=== PATIENT | male | born 1940 | race Caucasian/White ===

== ENCOUNTER 2017-11-25 18:35 | Emergency (ER) | payer MEDICARE, OTHER ==
--- NOTE | 2017-11-25 19:13 | EDM.PDOC ---
ED HPI GENERAL MEDICAL PROBLEM - General Chief Complaint: General Stated Complaint: Fall on ice; facial injury Time Seen by Provider: 11/25/17 18:36 Source of Information: Reports: Patient, Family, RN, RN Notes Reviewed History Limitations: Reports: No Limitations - History of Present Illness INITIAL COMMENTS - FREE TEXT/NARRATIVE: Patient presents to the ED at [facility] after he sustained a facial injury after slipping on an icy sidewalk. Patient states he slipped and fell, hitting his face on the cement. He denies any LOC. No previous head injury or trauma. Patient denies any neck pain. No back pain. Patient is concerned he may have knocked out a tooth. He complaints of bleeding from the upper lip. Onset: Today Onset Date: 11/25/17 Face Pain Score (Numeric/FACES): 3 - Related Data Allergies Allergy/AdvReac Type Severity Reaction Status Date / Time No Known Allergies Allergy Verified 11/25/17 18:38 Home Meds: Home Meds Acyclovir 400 mg PO BID 11/25/17 [History] Calcium Carbonate/Vitamin D3 [Os-Ariel 500+D] 1 each PO BID 11/25/17 [History] Cetirizine [ZyrTEC] 10 mg PO DAILY 11/25/17 [History] Lenalidomide [Revlimid] 25 mg PO Q48H 11/25/17 [History] Metoprolol Succinate [Toprol XL 50mg] 50 mg PO DAILY 11/25/17 [History] Rivaroxaban [Xarelto] 20 mg PO DAILY 11/25/17 [History] Sennosides/Docusate Sodium [Senna S Tablet] 1 each PO DAILY PRN 11/25/17 [ History] Tamsulosin [Tamsulosin 24 Hr] 0.4 mg PO DAILY 11/25/17 [History] Past Medical History Cardiovascular History: Reports: Hypertension Oncologic (Cancer) History: Reports: Other (See Below) Other Oncologic History: Multiple myeloma Social & Family History - Tobacco Use Smoking Status *Q: Never Smoker ED ROS GENERAL - Review of Systems Review Of Systems: See Below Constitutional: Denies: Fever, Chills HEENT: Reports: Other (right upper lip swelling and abrasion). Denies: Nose Pain, Sinus Problem, Vision Change Respiratory: Denies: Shortness of Breath, Cough Cardiovascular: Denies: Chest Pain, Palpitations Skin: Reports: Wound (abrasion to right upper lip) Neurological: Reports: No Symptoms. Denies: Dizziness, Headache, Numbness, Paresthesia, Tingling ED EXAM, GENERAL - Physical Exam Exam: See Below Exam Limited By: No Limitations General Appearance: Alert, No Apparent Distress Eye Exam: Bilateral Eye: EOMI, Normal Inspection, PERRL Ears: Normal External Exam, Normal Canal, Normal TMs Ear Exam: Bilateral Ear: TM normal Nose: Normal Inspection, No Blood Throat/Mouth: Normal Oropharynx, No Airway Compromise, Other (Abrasion to right upper lip; intact dental fracture to tooth#8; low grade venous ooze on inside of lip, no area that requires closure) Head: Atraumatic, Normocephalic Neck: Supple, Non-Tender, Full Range of Motion Respiratory/Chest: No Respiratory Distress, Lungs Clear, Normal Breath Sounds Cardiovascular: Normal Peripheral Pulses, Regular Rate, Rhythm Neurological: Alert, Oriented Skin Exam: Warm, Dry, Wound/Incision (abrasion to right upper lip) Course - Vital Signs Last Recorded V/S: Last Vital Signs Temp 35.8 C 11/25/17 18:40 Pulse 67 11/25/17 18:40 Resp 16 11/25/17 18:40 BP 149/90 H 11/25/17 18:40 Pulse Ox 95 11/25/17 18:40 - Orders/Labs/Meds Orders: Active Orders 24 hr Category Date Time Status Max Facial Sinus wo Cont [CT] Stat Exams 11/25/17 18:37 Taken - Radiology Interpretation Free Text/Narrative:: CT Max/Facial: No evidence of acute fracture; blastic changes in the cervical spine and possibly the clivus; suspicious for metastatic prostate cancer See scanned report in EMR CT Results Date: 11/25/17 CT Results Time: 19:04 Departure - Departure Time of Disposition: 19:15 Disposition: Home, Self-Care 01 Condition: Good Clinical Impression: Facial injury Qualifiers: Encounter type: initial encounter Qualified Code(s): S09.93XA - Unspecified injury of face, initial encounter Lip abrasion Qualifiers: Encounter type: initial encounter Qualified Code(s): S00.511A - Abrasion of lip , initial encounter Tooth fracture Qualifiers: Encounter type: initial encounter Fracture type: closed Qualified Code(s): S02.5XXA - Fracture of tooth (traumatic), initial encounter for closed fracture - Discharge Information Instructions: Abrasion, Tooth Injuries Referrals: PCP,Not In Area [Primary Care Provider] - Additional Instructions: 1. Stay well hydrated and rest 2. Apply ice to upper lip several times a day 3. May use Tylenol for pain; do not use Ibuprofen 4. It may take a while for any bleeding to stop because of the Xarelto 5. Follow up with your Primary as symptoms warrant 6. Call us with any questions or concerns - Problem List Review Problem List Initiated/Reviewed/Updated: Yes - My Orders Last 24 Hours: My Active Orders 11/25/17 18:37 Max Facial Sinus wo Cont [CT] Stat - Assessment/Plan Last 24 Hours: My Active Orders 11/25/17 18:37 Max Facial Sinus wo Cont [CT] Stat
== END 2017-11-25 19:34 | disposition home or self-care (01) ==
LOC: VM.ED 18:35
DX: S02.5XXA Fracture of tooth (traumatic), initial encounter for closed fracture (principal); S00.511A Abrasion of lip, initial encounter; I10 Essential (primary) hypertension; Z79.899 Other long term (current) drug therapy; W00.9XXA Unspecified fall due to ice and snow, initial encounter
CPT/HCPCS: 70486; 99283